=== PATIENT | female | born 1970 | race Two or more races ===

== ENCOUNTER 2017-09-07 18:48 | Emergency (ER) | payer OTHER ==
[~2017-09-07] VITALS: Ht 175.3 cm; Wt 99.8 kg
[2017-09-08] MEDS ORDERED: NORFLEX100MG PO (02:23)
[2017-09-08] MEDS ORDERED: KETO10TA2 PO (02:23)
== END 2017-09-08 02:31 | disposition home or self-care (01) ==
LOC: ER 18:48
DX: M54.5 Low back pain (principal)